=== PATIENT | female | born 1995 | race Caucasian/White ===

== ENCOUNTER 2018-11-10 17:27 | Emergency (ER) | payer OTHER ==
--- NOTE | 2018-11-10 17:31 | PDOC ---
Rapid Medical Evaluation Chief Complaint: Injury Time Seen by Provider: 11/10/18 17:29 Medical Evaluation: Allergies Allergy/AdvReac Type Severity Reaction Status Date / Time No Known Allergies Allergy Verified 05/09/14 20:52 11/10/18 17:30 I have performed a brief in-person evaluation of this patient. The patient presents with a chief complaint of: ankle injury Pertinent physical exam findings:stable and in NAD, non-focal I have ordered the following: motrin, xray The patient will proceed to the ED for further evaluation.
[2018-11-10 17:33] VITALS: BP 127/56; PULSE 84; TEMP 98.2; BMI 44.1
--- NOTE | 2018-11-10 18:08 | PDOC ---
History of Present Illness - General Chief Complaint: Injury Stated Complaint: ANKLE PAIN Time Seen by Provider: 11/10/18 17:29 History Source: Patient Exam Limitations: No Limitations Past History - Travel Traveled outside of the country in the last 30 days: No Close contact w/someone who was outside of country & ill: No - Past Medical History Allergies/Adverse Reactions: Allergies Allergy/AdvReac Type Severity Reaction Status Date / Time No Known Allergies Allergy Verified 11/10/18 17:34 Home Medications: Ambulatory Orders NK [No Known Home Medication] 05/09/14 - Immunization History Immunization Up to Date: Yes - Suicide/Smoking/Psychosocial Hx Smoking History: Never smoked Have you smoked in the past 12 months: No Information on smoking cessation initiated: No Hx Alcohol Use: No Drug/Substance Use Hx: No Substance Use Type: None Review of Systems - Review of Systems Able to Perform ROS?: Yes Comments:: 11/10/18 17:40 CONSTITUTIONAL: Absent: fever, chills, diaphoresis, generalized weakness, malaise, loss of appetite HEENT: Absent: rhinorrhea, nasal congestion, throat pain, throat swelling, difficulty swallowing, mouth swelling, ear pain, eye pain, visual Changes CARDIOVASCULAR: Absent: chest pain, loss of consciousness, palpitations, irregular heart rate, peripheral edema RESPIRATORY: Absent: cough, shortness of breath, dyspnea with exertion, orthopnea, wheezing, stridor, hemoptysis GASTROINTESTINAL: Absent: abdominal pain, abdominal distension, nausea, vomiting, diarrhea, constipation, melena, hematochezia GENITOURINARY: Absent: dysuria, frequency, urgency, hesitancy, hematuria, flank pain, genital pain MUSCULOSKELETAL: Absent: myalgia, arthralgia, joint swelling SKIN: Absent: rash, itching, pallor HEMATOLOGIC/IMMUNOLOGIC: Absent: easy bleeding, easy bruising, lymphadenopathy, frequent infections ENDOCRINE: Absent: unexplained weight gain, unexplained weight loss, heat intolerance, cold intolerance NEUROLOGIC: Absent: headache, focal weakness or paresthesias, dizziness, unsteady gait, seizure, mental status changes, bladder or bowel incontinence PSYCHIATRIC: Absent: anxiety, depression, suicidal or homicidal ideation, hallucinations. Is the patient limited Wolof proficient: No *Physical Exam - Vital Signs Last Vital Signs Temp Pulse Resp BP Pulse Ox 98.2 F 84 20 127/56 L 100 11/10/18 17:30 11/10/18 17:30 11/10/18 17:30 11/10/18 17:30 11/10/18 17:30 - Physical Exam Comments: 11/10/18 17:40 GENERAL: Well developed, well nourished. Awake and alert. No acute distress. HEENT: Normocephalic, atraumatic. PERRLA, EOMI. No conjunctival pallor. Sclera are non- icteric. Moist mucous membranes. Oropharynx is clear. NECK: Supple. Full ROM. No JVD. Carotid pulses 2+ and symmetric, without bruits. No thyromegaly. No lymphadenopathy. CARDIOVASCULAR: Regular rate and rhythm. No murmurs, rubs, or gallops. Distal pulses are 2+ and symmetric. PULMONARY: No evidence of respiratory distress. Lungs clear to auscultation bilaterally. No wheezing, rales or rhonchi. ABDOMINAL: Soft. Non-tender. Non-distended. No rebound or guarding. No organomegaly. Normoactive bowel sounds. MUSCULOSKELETAL Normal range of motion at all joints. No bony deformities or tenderness. No CVA tenderness. EXTREMITIES: No cyanosis. No clubbing. No edema. No calf tenderness. SKIN: Warm and dry. Normal capillary refill. No rashes. No jaundice. NEUROLOGICAL: Alert, awake, appropriate. Cranial nerves 2-12 intact. No deficits to light touch and temperature in face, upper extremities and lower extremities. No motor deficits in the in face, upper extremities and lower extremities. Normoreflexic in the upper and lower extremities. Normal speech. Toes are down- going bilaterally. Gait is normal without ataxia. PSYCHIATRIC: Cooperative. Good eye contact. Appropriate mood and affect. *DC/Admit/Observation/Transfer Diagnosis at time of Disposition: Ankle sprain Qualifiers: Encounter type: initial encounter Involved ligament of ankle: unspecified ligament Laterality: left Qualified Code(s): S93.402A - Sprain of unspecified ligament of left ankle, initial encounter - Discharge Dispostion Disposition: HOME Condition at time of disposition: Stable Decision to Admit order: No - Referrals Referrals: Kristian Hidalgo DO [Staff Physician] - - Patient Instructions Printed Discharge Instructions: DI for Ankle Sprain Additional Instructions: You sprained your ankle. Your x-ray was negative for broken bones. Please keep your ankle elevated while at rest above the level of your heart to reduce swelling. You may take Motrin 600 mg every 6 hours to help reduce pain and swelling. Please ice the area for 20 minute intervals at least 5 times a day to help reduce swelling. Please wear the Sony wrap. Please follow-up with orthopedics in 1 week if your symptoms are not improving. Return to the emergency department if you have worsening pain, or unable to walk , numbness and tingling of the foot, or had any changes in her symptoms. - Post Discharge Activity Forms/Work/School Notes: Back to School
[2018-11-10] MEDS ORDERED: IBUPROFEN 600 MG TABLET (FP) PO ONE ×2 (18:11→18:20)
== END 2018-11-10 18:55 | disposition home or self-care (01) ==
LOC: JERFT 17:27
DX: S63.502A Unspecified sprain of left wrist, initial encounter (principal); X58.XXXA Exposure to other specified factors, initial encounter; Y93.89 Activity, other specified; Y92.89 Other specified places as the place of occurrence of the external cause; Y99.8 Other external cause status
CPT/HCPCS: 73610-TC-LT-FY; 73630-TC-LT; 99281-25

== ENCOUNTER 2019-07-26 20:40 | Emergency (ER) | payer OTHER ==
--- NOTE | 2019-07-26 21:45 | PDOC ---
Rapid Medical Evaluation Time Seen by Provider: 07/26/19 21:43 Medical Evaluation: Allergies Allergy/AdvReac Type Severity Reaction Status Date / Time No Known Allergies Allergy Verified 11/10/18 17:34 07/26/19 21:44 Pt presents for evaluation of an abscess under her R buttock. She states it is draining blood. No abx at this time. Denies fevers Exam: deferred to provider Orders: nothing Pt to proceed to the ER for further evaluation Discharge Disposition - Diagnosis Buttock pain - Referrals - Patient Instructions - Post Discharge Activity
[2019-07-26 21:48] VITALS: BP 121/63; PULSE 68; TEMP 98.1
--- NOTE | 2019-07-26 23:55 | PDOC ---
History of Present Illness - General Chief Complaint: Abscess Boil Stated Complaint: PAIN Time Seen by Provider: 07/26/19 21:43 History Source: Patient Exam Limitations: No Limitations Past History - Past Medical History Allergies/Adverse Reactions: Allergies Allergy/AdvReac Type Severity Reaction Status Date / Time No Known Allergies Allergy Verified 11/10/18 17:34 Home Medications: Ambulatory Orders NK [No Known Home Medication] 05/09/14 COPD: No - Immunization History Immunization Up to Date: Yes - Psycho Social/Smoking Cessation Hx Smoking History: Never smoked Have you smoked in the past 12 months: No Hx Alcohol Use: No Drug/Substance Use Hx: No Substance Use Type: None *Physical Exam - Vital Signs Last Vital Signs Temp Pulse Resp BP Pulse Ox 98.1 F 68 18 121/63 97 07/26/19 21:46 07/26/19 21:46 07/26/19 21:46 07/26/19 21:46 07/26/19 21:46 - Physical Exam General Appearance: No: Apparent Distress Integumentary: positive: Other (around 3 cm area of induration with center of fluctuance along R lower buttock, no streaking) Neurologic: positive: Alert Procedures - Incision and Drainage I&D Site: Right: Buttock Betadine cleansed: Yes Anesthesia: 1% Lidocaine Blade Size: 11 Attempts: 1 Complications: none Medical Decision Making - Medical Decision Making 24 y/o F with no sig pmh presents with abscess along R buttock x 1 week. Noticed a bump which then gradually got bigger. Noticed some pus and blood drainage from today. Denies fever. I&D done with blood and pustular drainage No packing available in ED Wet to dry dressing applied over I&D Stable for dc 07/26/19 23:52 Discharge - Discharge Information Problems reviewed: Yes Clinical Impression/Diagnosis: Abscess Condition: Stable Disposition: HOME - Admission No - Additional Discharge Information Prescription Drug Monitoring Program (I-STOP) results: I-STOP not reviewed - Follow up/Referral - Patient Discharge Instructions Patient Printed Discharge Instructions: DI for Incision and Drainage of a Skin Abscess Additional Instructions: Thank you for choosing [facility]. It was a pleasure taking care of you. Return in 2 days for wound check Perform Sitz baths 3-4 times a day Warm compresses will also help Return to the Emergency Department if your symptoms worsen or persist, you have fever, streaking or other concerning symptoms. - Post Discharge Activity
== END 2019-07-27 00:01 | disposition home or self-care (01) ==
LOC: JER 20:40 → JERFT 20:40 → JER 07-27 00:01
PROC: 0H98XZZ Drainage of Buttock Skin, External Approach (ICD-10-PCS; principal; 2019-07-26)
DX: L02.31 Cutaneous abscess of buttock (principal)
CPT/HCPCS: 99281-25

== ENCOUNTER 2023-06-10 22:39 | Emergency (ER) | payer OTHER ==
[2023-06-10 22:50] VITALS: BP 127/70; PULSE 76; RESP 18; TEMP 98.2
[2023-06-11] MEDS ORDERED: IBUPROFEN 400 MG TABLET (FP) PO ONE ×2 (00:18→00:22)
[2023-06-11 00:33] LABS: HCG,QUALITATIVE URINE Negative
[2023-06-11 00:45] LABS: URINE APPEARANCE CLOUDY; URINE BILIRUBIN NEGATIVE (NEGATIVE); URINE COLOR YELLOW; URINE GLUCOSE (UA) NEGATIVE (NEGATIVE); URINE KETONE NEGATIVE (NEGATIVE); URINE LEUK ESTERASE NEGATIVE (NEGATIVE); URINE NITRITE NEGATIVE (NEGATIVE); URINE PROTEIN NEGATIVE (NEGATIVE)
== END 2023-06-11 00:44 | disposition home or self-care (01) ==
LOC: JER 22:39
DX: N76.89 Other specified inflammation of vagina and vulva (principal)
CPT/HCPCS: 36415; 81003; 84703; 87086; 87491; 87591; 99283-25

== ENCOUNTER 2025-04-15 11:19 | Emergency (ER) | payer BC, OTHER ==
[2025-04-15 11:23] VITALS: BP 110/71; PULSE 65; RESP 20; TEMP 97.9; BMI 22.1
[2025-04-15] MEDS ORDERED: IBUPROFEN 600 MG TABLET (FP) PO ONE (12:02)
[2025-04-15] MEDS ORDERED: LIDOCAINE 4% PATCH TP ONE (12:12)
[2025-04-15] MEDS: IBUPROFEN 600 MG TABLET (FP) PO ONE (12:15)
[2025-04-15] MEDS: LIDOCAINE 4% PATCH TP ONE (12:15)
[2025-04-15] MEDS ORDERED: LIDOCAINE PATCH REMOVAL MC ONE (22:00)
== END 2025-04-15 12:15 | disposition home or self-care (01) ==
LOC: JERFT 11:19
DX: M62.838 Other muscle spasm (principal); M54.2 Cervicalgia
CPT/HCPCS: 99283-25